=== PATIENT | male | born 1935 | race Caucasian/White ===

== ENCOUNTER 2018-12-15 12:42 | Day surgery (SDC) | payer MEDICARE ==
[~2018-12-15] VITALS: Ht 175.3 cm; Wt 86.2 kg
[~2018-12-15 12:42] MED LIST: ASCO500; ASCO500 PO; ASPI325; Aspirin EC81 MG PO; CALCAVITDA PO; ESCI10 PO; HYDACE5; IRBE75 PO; MULVITMINF; MULVITMINF PO; OMEPRAZOLE20 MG PO; OXYACE5T PO; OXYB5ER PO; Pravachol40 MG PO; ROSU10TA PO; TOCO400; TOLT2 PO; TRIHYD253A; TRIHYD253A PO
== END 2018-12-15 14:59 | disposition home or self-care (01) ==
LOC: ORSCSDS 12:42
PROVIDERS: Internal Medicine Gastroenterology
PROC: 0DBM8ZX Excision of Descending Colon, Via Natural or Artificial Opening Endoscopic, Diagnostic (ICD-10-PCS; principal; 2018-12-15 14:00)
DX: Z12.11 Encounter for screening for malignant neoplasm of colon (principal); Z86.010 Personal history of colon polyps; D12.4 Benign neoplasm of descending colon; K57.30 Diverticulosis of large intestine without perforation or abscess without bleeding; I10 Essential (primary) hypertension; I25.10 Atherosclerotic heart disease of native coronary artery without angina pectoris; I48.0 Paroxysmal atrial fibrillation; J44.9 Chronic obstructive pulmonary disease, unspecified; Z87.891 Personal history of nicotine dependence; Z79.899 Other long term (current) drug therapy; Z79.82 Long term (current) use of aspirin
CPT/HCPCS: 88305; J2704; J7120

== ENCOUNTER → 2019-11-01 | Outpatient (CLI) | payer MEDICARE | END | disposition home or self-care (01) | LOC: LAB SHORT 11:04 → PLD 11:04 | DX: D48.5 Neoplasm of uncertain behavior of skin (principal) | CPT/HCPCS: 88305 ==